=== PATIENT | female | born 1960 | race Caucasian/White ===

== ENCOUNTER 2020-01-16 13:16 | Emergency (ER) | payer BC, SELFPAY ==
--- NOTE | ~2020-01-16 | CT_ITS ---
EXAMINATION: CT abdomen pelvis w con DATE: 01/16/2020 14:34 INDICATION: Jaundice. Gallbladder, pancreas pathology. TECHNIQUE: Computed tomography (CT) of the abdomen and pelvis was performed with 100 cc Omnipaque 350 intravenous contrast. Automated exposure control and iterative reconstruction technique were employe d. Exam dose: 662.16 mGy-cm total exam DLP. COMPARISON: None. FINDINGS: Calcified granuloma of the lingula. No infiltrate or consolidation in the lower lung zones. Normal heart size. No pericardial or pleural effusion. The gallbladder is distended. No gallbladder wall thickening or pericholecystic fluid or stranding. T here is intrahepatic and extrahepatic bile duct prominence as well as prominence of pancreatic duct. There is an area of approximately 3 cm diminished attenuation of the pancreatic head, with minimal if any surrounding fat stranding. The findings are of concern for pancreatic malignancy with obstructiv e dilatation of the bile and pancreatic ducts. Differential diagnosis includes less likely pancreatit is. Clinical correlation is advised. Splenic size is within normal range. No suspicious hepatic or splenic space-occupying mass lesion. Th ere are calcified splenic granulomas consistent with old granulomatous disease. No adrenal mass lesion is evident. No renal mass lesion or urinary tract calculus or hydroureteronephrosis is detected. There is atherosclerotic calcification of the abdominal aorta, iliac arteries, renal arteries. No abd ominal aortic aneurysm. No intraperitoneal or retroperitoneal or pelvic mass lesion or adenopathy or ascites. No bowel obstruction or intraperitoneal free air. The urinary bladder is unremarkable. Status post hysterectomy. IMPRESSION: Approximately 3 cm hypoattenuating lesion of the pancreatic head with obstructive dilata tion of the bile duct and pancreatic duct; findings most likely due to pancreatic malignancy Dr. Gonsales telephoned ER physician Dr. Sanders with the findings on 01/16/2020 at 1536 hours Reviewed, dictated and finalized at [facility] Reviewed, dictated and finalized at [facility]. IMPRESSION: Approximately 3 cm hypoattenuating lesion of the pancreatic head w ith obstructive dilatation of the bile duct and pancreatic duct; findings most likely due to pancreatic malignancy Dr. Gonsales telephoned ER physician Dr. Sanders with the findings on 01/16/2020 at 15 36 hours
[2020-01-16 13:27] VITALS: BP 94/32; PULSE 83; RESP 20; TEMP 36.7; O2SAT 100
--- NOTE | 2020-01-16 13:50 | ED.GENADULT ---
HPI - General Adult General Chief complaint: Abdominal Pain Stated complaint: DARK URINE, TURNING YELLOW Time Seen by Provider: 01/16/20 13:36 Source: patient Mode of arrival: ambulatory Limitations: no limitations History of Present Illness HPI narrative: A 59 y/o female presents to the ED with c/o jaundice. She states that on 01/14/20 her daughter noticed that the patient's skin was more yellow than normal. Pt reports chills, ABD pain, fatigue, dark urine, loose stools, discoloration of stool, and nausea, but denies vomiting, fever, changes in BM. She notes that the urine is tea colored and does not note any aggravating or alleviating factors for her symptoms. Pt has a PMHx of HTN, COPD, GERD, hysterectomy, and hyperlipidemia. She adds that the GERD is constant and causes burping and a burning in her throat when she bends down. Pt is a smoker. MD complaint: Jaundice Onset (ago): day(s) (2) Relieving factors: none Exacerbating factors: none Associated symptoms: fever/chills, nausea/vomiting and other (ABD pain, fatigue, dark urine, loose stools, discoloration of stool) Related Data Home Medications Medication Instructions Recorded Confirmed amlodipine 5 mg tablet 5 mg PO DAILY 10/07/19 atorvastatin 80 mg tablet 80 mg PO DAILY 10/07/19 hyoscyamine sulfate 0.125 mg 0.25 mg SUBLINGUAL DAILY tablet 10/07/19 sublingual tablet pantoprazole 40 mg tablet,delayed 40 mg PO QAM 01/15/20 release Allergies Allergy/AdvReac Type Severity Reaction Status Date / Time No Known Allergies Allergy Verified 12/16/19 11:00 Review of Systems Review of Systems: All systems reviewed & are unremarkable except as noted in HPI and below Constitutional: Constitutional: Reports chills, Reports fatigue and Denies fever(s) Gastrointestinal: Gastrointestinal: Reports abdominal pain, Denies change in bowel habits, Reports change in stool character (Discoloration in stool), Reports loose stools, Reports nausea and Denies vomiting Genitourinary: Genitourinary: Reports other (Dark urine) Integumentary/Breasts: Skin/Breast: Reports jaundice PMFSH Past Medical History Medical History (Updated 01/17/20 @ 00:00 by Background Daemon) Anxiety Arm fracture Carpal tunnel syndrome COPD (chronic obstructive pulmonary disease) Coronary artery disease involving navajo coronary artery without angina pectoris (06/15/16) Depression PARNELL (dyspnea on exertion) Essential hypertension Fibroids GERD (gastroesophageal reflux disease) Hyperlipidemia Leg fracture Migraine Mild episode of recurrent major depressive disorder Mitral valve prolapse Psoriasis Pulmonary emphysema PVD (peripheral vascular disease) SI (sacroiliac) joint inflammation Spinal stenosis of lumbar region TIA (transient ischemic attack) Tinnitus of both ears UTI (urinary tract infection) Vitamin D deficiency, unspecified Surgical History Surgical History (Updated 01/16/20 @ 13:48 by Isabelle Loyd) History of bladder surgery Bladder suspension History of hysterectomy Family History Family History Father Family history of chronic obstructive pulmonary disease Family history of diabetes mellitus in first degree relative Diabetes mellitus Patient's father is in good health Family history of hearing loss Mother Family history of thyroid disease Family history of mental disorder, Onset Age: 67 Hypertension Other Carcinoma of colon Cerebrovascular accident Family history of malignant neoplasm of ovary Social History Social History (Updated 01/16/20 @ 13:49 by Isabelle Loyd) Smoking packs per day: 1 Smoking cigarettes per day: 20.0 Years smoked: 35 Smoking pack-years: 35.00 Smoking status: Heavy tobacco smoker Alcohol intake: never Exam Narrative: Exam Narrative: General appearance: Well-developed, well-nourished Skin: Normal color Head: Normocephalic, nontraumatic Eyes: Clear conjunctiva E
[2020-01-16] MEDS: SODIUM CHLORIDE 0.9% IV 1,000 ML 999 ML IV CONT (13:54)
[2020-01-16 14:09] LABS: Basophils Percent Auto 0.2 % (0.2-1.2); Eosinophils Absolute Auto 0.1 K/mm3 (0-0.3); Eosinophils Percent Auto 1.2 % (0-4.4); Hematocrit 38.1 % (37.0-47.0); Hemoglobin 13.2 g/dL (12.0-15.0); Immature Granulocyte Absolute 0.02 K/mm3 (0.00-0.031); Immature Granulocyte Percent A 0.2 % (0-0.5); Lymphocytes Percent Auto 15.8 % (18.3-44.2); Mean Corpuscular HGB Conc 34.6 g/dl (32-36); Mean Corpuscular Hemoglobin 31.6 pg (26-34); Mean Corpuscular Volume 91.1 fl (80-100); Mean Platelet Volume 11.4 fl (7.4-10.4); Monocytes Absolute Auto 0.7 K/mm3 (0.1-0.6); Monocytes Percent Auto 7.3 % (2.6-8.5); Neutrophils Absolute Auto 6.7 K/mm3 (1.3-6.7); Neutrophils Percent Auto 75.3 % (45.5-73.1); Platelet Count Result 237 k/mm3 (150-375); Red Blood Count 4.18 M/mm3 (4.2-5.4); Red Cell Distribution Width 12.9 % (11.5-14.5); White Blood Count 8.9 K/mm3 (4.5-10.0)
[2020-01-16 14:16] LABS: Add Urine Microscopic? YES; Appearance Urine Clear (Clear); Bacteria Urine Trace /hpf; Bilirubin Urine Negative (Negative); Blood Urine Negative (Negative); Color Urine Amber (Yellow); Glucose Urine UA Negative (Negative); Ketones Urine Negative (Negative); Leukocyte Esterase Ur Negative LEU/UL (Negative); Nitrate Urine Negative (Negative); Protein Urine Negative (Negative); Specific Grav Ur 1.011 (1.001-1.035); Squamous Epithelial Cell Urine Many /hpf (Few)
[2020-01-16 14:18] LABS: INR 0.9; Prothrombin Time 11.6 Seconds (11.1-14.7)
[2020-01-16 14:19] LABS: Partial Thromboplastin Time 27.1 SECONDS (22.3-36.8)
[2020-01-16 14:20] LABS: Alanine Aminotransferase 347 U/L (4-35); Albumin Level 4.3 g/dL (3.5-5.1); Alkaline Phosphatase 654 U/L (38-126); Aspartate Amino Transferase 251 U/L (14-36); Bilirubin,Total 5.2 mg/dL (0.2-1.3); Blood Urea Nitrogen 8 mg/dL (7-17); Carbon Dioxide 24 mmol/L (22-30); Chloride 89 mmol/L (98-107); Estimated CRCL calculation 70 ml/min; Estimated Glomerular Filt Rate > 60; Glucose 144 mg/dL (65-105); Lipase 223 U/L (23-300); Potassium 3.3 mmol/L (3.4-5.0); Sodium 125 mmol/L (137-145)
[2020-01-16 16:00] VITALS: BP 112/70; PULSE 88; RESP 16; O2SAT 98
[2020-01-16 17:04] VITALS: BP 103/64; PULSE 84; RESP 18; O2SAT 97
[2020-01-16] MEDS: SODIUM CHLORIDE 0.9% IV 1,000 ML 60 ML IV CONT (17:33)
--- NOTE | 2020-01-16 19:16 | PC.NURSE ---
accepted to [id number] bed [facility][id number]
[2020-01-16 19:19] VITALS: BP 102/59; PULSE 84; RESP 16; O2SAT 98
[2020-01-16 21:03] VITALS: BP 108/72; PULSE 78; RESP 16; O2SAT 97
--- NOTE | 2020-01-16 22:54 | PC.NURSE ---
pt to travel by private car to [facility]. DR BLEVINS IS OK WITH THAT CHOICE SIGNED AMA FOR RELATED TO REFUSING EMS TRANSPORT CALLED [facility] AND INFORMED THEM OF PT TRANSPORTATION
== END 2020-01-16 22:53 | disposition short-term general hospital (02) ==
PROVIDERS: Emergency Provider Emergency Medicine; PCP Internal Medicine
DX: R17 Unspecified jaundice (principal); K86.9 Disease of pancreas, unspecified; J44.9 Chronic obstructive pulmonary disease, unspecified; I25.10 Atherosclerotic heart disease of native coronary artery without angina pectoris; I10 Essential (primary) hypertension; K21.9 Gastro-esophageal reflux disease without esophagitis; E78.5 Hyperlipidemia, unspecified; I34.1 Nonrheumatic mitral (valve) prolapse; I73.9 Peripheral vascular disease, unspecified; Z86.73 Personal history of transient ischemic attack (TIA), and cerebral infarction without residual deficits; Z87.440 Personal history of urinary (tract) infections; E55.9 Vitamin D deficiency, unspecified; F17.210 Nicotine dependence, cigarettes, uncomplicated
CPT/HCPCS: 36415; 74177; 80053; 81001; 83690; 85025; 85610; 85730; 87086; 87088; 96360; 96361; 99285; J7030; Q9967